=== PATIENT | female | born 1975 | race Two or more races ===

== ENCOUNTER 2017-02-17 15:00 | Emergency (ER) | payer OTHER ==
[~2017-02-17] VITALS: Ht 154.9 cm; Wt 75.7 kg
--- NOTE | 2017-02-17 15:15 | NUR ---
PATIENT PRESENTS TO ED, C/O HEADACHE X 3 DAYS. PATIENT IS A/OX 4. BREATHING EVEN AND UNLABORED. NO SOB. VITALS STABLE. AWAITING MD ORDERS.
[2017-02-17] MEDS ORDERED: predniSONE 20 MG TABLET ONE (15:38)
--- NOTE | 2017-02-17 15:44 | NUR ---
Patient discharged to home in stable condition. Written and verbal after care instructions given. Patient verbalizes understanding of instruction.
[2017-02-17 15:48] VITALS: BP 117/77
[2017-02-17] MEDS ORDERED: predniSONE 20 MG TABLET PO ONE (16:00)
== END 2017-02-17 15:48 | disposition home or self-care (01) ==
LOC: ER 15:02
DX: R51 Headache (principal)
CPT/HCPCS: 99283; A4606; J7512; Z7610

== ENCOUNTER 2017-08-14 19:24 | Emergency (ER) | payer OTHER ==
[~2017-08-14] VITALS: Ht 167.6 cm; Wt 73.5 kg
[2017-08-14 19:32] VITALS: BP 113/69
[2017-08-14 21:23] LABS: APPEARANCE,URINE Clear (CLEAR); BILIRUBIN,URINE SMALL (NEGATIVE); BLOOD, URINE Moderate Ery/uL (NEGATIVE); COLOR,URINE Yellow (YELLOW); KETONES,URINE >=160 (NEGATIVE); LEUKOCYTE ESTERASE ,URINE Negative (NEGATIVE); NITRITE, URINE Negative (NEGATIVE); PH,URINE 5.5 (5.0-8.0); PROTEIN,URINE 30 mg/dl (NEGATIVE); UGLUCOSE Negative (NEGATIVE); UROBILINOGEN,URINE 0.2 EU/dL (0.2)
[2017-08-14 21:29] LABS: BACTERIA,URINE Few /HPF (None Seen); SQUAMOUS EPITHELIAL CELL,UR Many /HPF (None Seen)
[2017-08-14] MEDS ORDERED: ACETAMINOPHEN ES 500 MG TABLET PO ONE (21:30)
[2017-08-14] MEDS ORDERED: ACETAMINOPHEN ES 500 MG TABLET ONE (21:39)
== END 2017-08-14 21:56 | disposition home or self-care (01) ==
LOC: ER 19:28
DX: J11.1 Influenza due to unidentified influenza virus with other respiratory manifestations (principal)
CPT/HCPCS: 81001; 84703; 99284; A4606; Z7610; 81000-TC

== ENCOUNTER 2021-03-21 08:38 | Emergency (ER) | payer MEDICAID, OTHER ==
[~2021-03-21] VITALS: Ht 154.9 cm; Wt 59.0 kg
[2021-03-21 08:46] VITALS: BP 110/75
--- NOTE | 2021-03-21 09:09 | NUR ---
Patient discharged to home in stable condition. Written and verbal after care instructions given. Patient verbalizes understanding of instruction.
== END 2021-03-21 09:10 | disposition home or self-care (01) ==
LOC: ER 08:38
DX: J06.9 Acute upper respiratory infection, unspecified (principal)

== ENCOUNTER 2022-11-17 22:10 | Emergency (ER) | payer MEDICAID ==
[~2022-11-17] VITALS: Ht 167.6 cm; Wt 72.6 kg
[2022-11-17] MEDS ORDERED: IV NS 0.9% 1,000 ML BAG IV ONE (23:30)
[2022-11-17] MEDS ORDERED: SUMATRIPTAN SUCCINATE 6 MG/0.5 ML VIAL SQ ONE (23:30)
[2022-11-17] MEDS ORDERED: METOCLOPRAMIDE HCL 10 MG/2 ML VIAL IV ONE (23:30)
[2022-11-17] MEDS ORDERED: KETOROLAC TROMETHAMINE INJ 30 MG/ML VIAL IV ONE (23:30)
--- NOTE | 2022-11-18 00:05 | NUR ---
BIBSELF WITH C/O OF LEFT SIDED HEADACHE. PT IS A/O X 4, ABLE TO VERBALIZE NEEDS. ON RA, TOLERATING WELL, NO S/SX OF ACUTE RESPI DISTRESS NOTED AT THIS TIME. NO SOB, BREATHING IS EVEN AND UNLABORED. WILL CONTINUE TO MONITOR PT.
--- NOTE | 2022-11-18 00:18 | NUR ---
RAC #20G S/L BLOOD COLLECTED AND SENT TO LAB
[2022-11-18] MEDS ORDERED: METOCLOPRAMIDE HCL 10 MG/2 ML VIAL ONE (00:19)
[2022-11-18] MEDS ORDERED: SUMATRIPTAN SUCCINATE 6 MG/0.5 ML VIAL SQ ONE (00:21)
[2022-11-18] MEDS ORDERED: KETOROLAC TROMETHAMINE INJ 30 MG/ML VIAL ONE (00:21)
[2022-11-18] MEDS ORDERED: PROCHLORPERAZINE EDISYLATE 10 MG/2 ML VIAL ONE (00:44)
[2022-11-18] MEDS ORDERED: PROCHLORPERAZINE EDISYLATE 10 MG/2 ML VIAL IVP ONE (01:00)
[2022-11-18] MEDS ORDERED: METO-295 PO (01:12)
[2022-11-18] MEDS ORDERED: KETO10TA2 PO (01:12)
[2022-11-18] MEDS ORDERED: PROC-11 PO (01:12)
--- NOTE | 2022-11-18 01:32 | NUR ---
Patient discharged to home in stable condition. Written and verbal after care instructions given. Patient verbalizes understanding of instruction.
[2022-11-18 01:33] VITALS: BP 110/65
== END 2022-11-18 01:33 | disposition home or self-care (01) ==
LOC: ER 22:16
DX: R51.9 Headache, unspecified (principal)
CPT/HCPCS: 99285; 70450; 96374; 96375; 96361; 96372; J0780; J3030; J2765; J1885; J7030